=== PATIENT | male | born 1990 | race Hispanic/Latino ===

== ENCOUNTER 2020-08-10 00:33 | Emergency (ER) | payer OTHER ==
[2020-08-10] MEDS ORDERED: TETANUS & DIPHTHERIA TOX,ADULT 0.5 ML VIAL ONE (01:16)
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
[2020-08-10 01:50] VITALS: BP 128/85; TEMP 98.4; O2SAT 96
[2020-08-13 13:56] LABS: HIV AG/AB 4TH GEN Non-reactive (Non-reactive)
[2020-08-14 04:47] LABS: HBsAG Nonreactive (Nonreactive)
== END 2020-08-10 01:45 | disposition home or self-care (01) ==
LOC: ER 00:33
DX: S61.032A Puncture wound without foreign body of left thumb without damage to nail, initial encounter (principal); W27.3XXA Contact with needle (sewing), initial encounter; Y93.89 Activity, other specified; Y92.89 Other specified places as the place of occurrence of the external cause; Y99.8 Other external cause status; Z23 Encounter for immunization
CPT/HCPCS: 80074; 87389; 90471; 90714; 99283